=== PATIENT | female | born 1985 | race Caucasian/White ===

== ENCOUNTER 2016-12-15 03:34 | Inpatient (IN) | payer OTHER ==
[2016-12-15 04:46] LABS: Hematocrit 32 % (35-47); Hemoglobin 10.5 g/dl (12.0-16.0); Mean Corpuscular HGB Conc 33 g/dl (31-36); Mean Corpuscular Hemoglobin 29 pg (27-31); Mean Corpuscular Volume 90 fL (80-97); Mean Platelet Volume 11 um3 (7.4-10.4); Red Blood Count 3.58 10^6/ul (4.0-5.4); Red Cell Distribution Width 14 % (10.5-15); White Blood Count 14.8 10^3/ul (3.5-10.8)
[2016-12-15] MEDS ORDERED: OBEPIDURAL* 250 ML ONE (05:26)
[2016-12-15] MEDS ORDERED: EPHEDrine (Pressors)* 50 MG/ML VIAL IV PUSH PRN ×2 (06:18)
[2016-12-15] MEDS ORDERED: Phenylephrine IV* 40 MCG/ML 10 ML SYRINGE IV PUSH PRN ×2 (06:18)
[2016-12-15] MEDS ORDERED: Sodium Citrate/Citric Acid* 15 ML UDC PO PRN (06:18)
[2016-12-15] MEDS ORDERED: Famotidine TAB* 20 MG PO PRN (06:18)
[2016-12-15] MEDS ORDERED: OBEPIDURAL* 250 ML EPIDURAL SCH (07:00)
[2016-12-15] MEDS ORDERED: Oxytocin in LR* 20 UNITS/1,000 ML BAG IVPB ONE (09:28)
[2016-12-15] MEDS ORDERED: Dibucaine 1% 28.35 GM TUBE PR PRN (12:51)
[2016-12-15] MEDS ORDERED: Acetaminophen TAB* 325 MG PO PRN (12:51)
[2016-12-15] MEDS ORDERED: oxyCODONE/Acetamin 5/325 MG* TAB PO PRN (12:51)
[2016-12-15] MEDS ORDERED: Glycerin ADULT SUPP PR PRN (12:51)
[2016-12-15] MEDS ORDERED: Witch Hazel PAD* JAR TOPICAL PRN (12:51)
[2016-12-15] MEDS ORDERED: Oxytocin in LR* 20 UNITS/1,000 ML BAG IVPB SCH (13:00)
[2016-12-15] MEDS ORDERED: Simethicone CHEW TAB* 80 MG PO SCH (17:30)
[2016-12-15] MEDS: Docusate CAP* 100 MG PO SCH ×2 (21:21→23:28)
[2016-12-15] MEDS: Ibuprofen TAB* 600 MG PO PRN (22:53)
[2016-12-16 06:58] LABS: Hematocrit 26 % (35-47); Hemoglobin 8.5 g/dl (12.0-16.0); Mean Corpuscular HGB Conc 33 g/dl (31-36); Mean Corpuscular Hemoglobin 30 pg (27-31); Mean Corpuscular Volume 91 fL (80-97); Mean Platelet Volume 11 um3 (7.4-10.4); Red Blood Count 2.86 10^6/ul (4.0-5.4); Red Cell Distribution Width 14 % (10.5-15); White Blood Count 9.7 10^3/ul (3.5-10.8)
[2016-12-16] MEDS: Docusate CAP* 100 MG PO SCH ×3 (08:15→20:17)
[2016-12-16] MEDS: Ferrous Gluconate TAB* 324 MG TAB PO SCH ×2 (08:16→20:17)
[2016-12-16] MEDS: Ibuprofen TAB* 600 MG PO PRN ×3 (08:16→20:17)
[2016-12-17] MEDS: Docusate CAP* 100 MG PO SCH (07:53)
[2016-12-17] MEDS: Ferrous Gluconate TAB* 324 MG TAB PO SCH (07:53)
[2016-12-17] MEDS: Ibuprofen TAB* 600 MG PO PRN (07:53)
[2016-12-17 08:33] VITALS: BP 110/67
== END 2016-12-17 12:14 | disposition home or self-care (01) | DRG 560 ==
LOC: MCHOBOUT 03:34 → MCHOB 05:26
PROVIDERS: ADMIT Obstetrics & Gynecology; ATTEND Obstetrics & Gynecology
PROC: 10E0XZZ Delivery of Products of Conception, External Approach (ICD-10-PCS; principal; 2016-12-15)
PROC: 10907ZC Drainage of Amniotic Fluid, Therapeutic from Products of Conception, Via Natural or Artificial Opening (ICD-10-PCS; 2016-12-15)
PROC: 4A1HXCZ Monitoring of Products of Conception, Cardiac Rate, External Approach (ICD-10-PCS; 2016-12-15)
PROC: 0KQM0ZZ Repair Perineum Muscle, Open Approach (ICD-10-PCS; 2016-12-15)
DX: O34.211 Maternal care for low transverse scar from previous cesarean delivery (principal); O48.0 Post-term pregnancy; Z3A.40 40 weeks gestation of pregnancy; Z37.0 Single live birth; O70.1 Second degree perineal laceration during delivery; O90.81 Anemia of the puerperium
CPT/HCPCS: 36415; 85025; 86850; 86900; 86901; A9270-GY

== ENCOUNTER 2021-10-07 16:10 | Inpatient (IN) ==
[2021-10-07] MEDS ORDERED: Lactated Ringers 1000 ml BAG 1,000 ML IV ONE ×2 (19:02→22:16)
[2021-10-07] MEDS ORDERED: Buffered Lidocaine 1% SYRIN 1 ml INTRADERM ONE (19:02)
[2021-10-07 19:35] LABS: ABS Eosinophils 0.1 10^3/ul (0-0.6); ABS Lymphocytes 1.7 10^3/ul (1.0-4.8); ABS Monocytes 1.1 10^3/ul (0-0.8); ABS Neutrophils 7.3 10^3/ul (1.5-7.7); Eosinophil % 0.5 %; Hematocrit 29 % (35-47); Hemoglobin 9.6 g/dL (12.0-16.0); Lymphocyte % 16.9 %; Mean Corpuscular HGB Conc 33 g/dL (31-36); Mean Corpuscular Hemoglobin 28 pg (27-31); Mean Corpuscular Volume 86 fL (80-97); Mean Platelet Volume 10.7 fL (7.4-10.4); Platelet Count 229 10^3/uL (150-450); Red Blood Count 3.38 10^6 /uL (3.70-4.87); Red Cell Distribution Width 14 % (10-15); White Blood Count 10.2 10^3/uL (3.5-10.8)
[2021-10-07] MEDS ORDERED: Lactated Ringers 1000 ml BAG 1,000 ML IV SCH ×3 (20:00→23:45)
[2021-10-07 21:07] LABS: Urine Benzodiazepine Screen None Detected (None Detect); Urine Cannabinoids Screen None Detected (None Detect); Urine Opiates Screen None Detected (None Detect)
[2021-10-07] MEDS ORDERED: OBEPIDURAL (200 ML) 200 ML EPIDURAL ONE (21:36)
[2021-10-07] MEDS ORDERED: Phenylephrine 40 mcg/mL 10mL (400mcg) SYRINGE IV PUSH PRN ×2 (22:16)
[2021-10-07] MEDS ORDERED: Sodium Citrate/Citric Acid LIQ 15 ML UDC PO PRN (22:16)
[2021-10-07] MEDS ORDERED: Lactated Ringers 1000 ml BAG 500 ML IV PRN (22:16)
[2021-10-07] MEDS ORDERED: Oxytocin in LR 20 UNITS/1,000 ML BAG IVPB ONE (22:51)
[2021-10-07] MEDS ORDERED: OBEPIDURAL (200 ML) 200 ML EPIDURAL SCH (23:00)
[2021-10-07] MEDS ORDERED: Glycerin ADULT 2.4 gm SUPP PR PRN (23:13)
[2021-10-07] MEDS ORDERED: Witch Hazel PAD JAR TOPICAL PRN (23:13)
[2021-10-07] MEDS ORDERED: Dibucaine 1% OINT 28.35 GM TUBE PR PRN (23:13)
[2021-10-07] MEDS ORDERED: Oxytocin in LR 20 UNITS/1,000 ML BAG IVPB SCH (23:45)
[2021-10-08 06:15] LABS: ABS Lymphocytes 1.3 10^3/ul (1.0-4.8); ABS Monocytes 1.1 10^3/ul (0-0.8); ABS Neutrophils 11.2 10^3/ul (1.5-7.7); Eosinophil % 0.3 %; Hematocrit 26 % (35-47); Hemoglobin 8.5 g/dL (12.0-16.0); Lymphocyte % 9.7 %; Mean Corpuscular HGB Conc 32 g/dL (31-36); Mean Corpuscular Hemoglobin 27 pg (27-31); Mean Corpuscular Volume 85 fL (80-97); Mean Platelet Volume 9.7 fL (7.4-10.4); Platelet Count 208 10^3/uL (150-450); Red Blood Count 3.09 10^6 /uL (3.70-4.87); Red Cell Distribution Width 14 % (10-15); White Blood Count 13.7 10^3/uL (3.5-10.8)
[2021-10-08] MEDS: CEPHALEXIN 500 MG PO SCH ×2 (09:09→21:14)
[2021-10-09] MEDS: CEPHALEXIN 500 MG PO SCH (08:42)
[2021-10-09 09:01] VITALS: BP 113/72
== END 2021-10-09 13:35 | disposition home or self-care (01) | DRG 560 ==
LOC: MCHOBOUT 16:10 → MCHOB 18:38
PROVIDERS: ADMIT Obstetrics & Gynecology; ATTEND Obstetrics & Gynecology

== ENCOUNTER 2024-06-24 09:02 | Inpatient (IN) ==
[2024-06-24] MEDS ORDERED: Prochlorperazine 5 mg/ml 2 ml VIAL (10 mg) IV PRN (10:34)
[2024-06-24] MEDS ORDERED: Lidocaine 1% VIAL 10 MG/ML 30 ML VIAL INJ PRN (10:34)
[2024-06-24] MEDS ORDERED: Nalbuphine 10 MG/ML 1 ML VIAL IV PRN (10:34)
[2024-06-24] MEDS ORDERED: Buffered Lidocaine 1% SYRIN 1 ml INTRADERM ONE (10:34)
[2024-06-24 11:06] LABS: ABS Lymphocytes 1.3 10^3/uL (1.0-4.8); ABS Monocytes 0.9 10^3/uL (0.0-0.9); ABS Neutrophils 8.4 10^3/uL (1.5-7.6); Eosinophil % 0.4 %; Hematocrit 35.9 % (35-45); Hemoglobin 11.9 g/dL (11.5-14.3); Lymphocyte % 12.2 %; Mean Corpuscular Hemoglobin 29.6 pg (27-33); Mean Corpuscular Hgb Conc 33.2 g/dL (31-36); Mean Corpuscular Volume 89.1 fL (80-97); Mean Platelet Volume 8.7 fL (7.5-11.2); Platelet Count 295 10^3/uL (150-450); Red Blood Count 4.03 10^6/uL (3.63-4.92); Red Cell Distribution Width 20.8 % (12-17); White Blood Count 10.7 10^3/uL (3.8-11.8)
[2024-06-24] MEDS: Lactated Ringers 1000 ml BAG 1,000 ML IV ONE (11:13)
[2024-06-24] MEDS ORDERED: Lidocaine 1.5% EPI 1:200,000 30 ML SDV ONE (11:15)
[2024-06-24 11:23] LABS: Urine Benzodiazepine Screen None Detected (None Detect); Urine Cannabinoids Screen None Detected (None Detect); Urine Opiates Screen None Detected (None Detect)
[2024-06-24] MEDS: OBEPIDURAL (200 ML) 200 ML EPIDURAL ONE (11:42)
[2024-06-24] MEDS: Lactated Ringers 1000 ml BAG 1,000 ML IV SCH (11:44)
[2024-06-24] MEDS ORDERED: Sodium Citrate/Citric Acid LIQ 15 ML UDC PO PRN (11:48)
[2024-06-24] MEDS ORDERED: Phenylephrine 40 mcg/mL 10mL (400mcg) SYRINGE IV PUSH PRN ×2 (11:48)
[2024-06-24] MEDS ORDERED: Lactated Ringers 1000 ml BAG 1,000 ML IV ONE (11:48)
[2024-06-24] MEDS ORDERED: OBEPIDURAL (200 ML) 200 ML EPIDURAL SCH (12:00)
[2024-06-24] MEDS ORDERED: Lactated Ringers 1000 ml BAG 1,000 ML IV SCH ×2 (12:00→14:00)
[2024-06-24 12:42] LABS: Urine Appearance Clear; Urine Bilirubin Negative (Negative); Urine Blood Negative (Negative); Urine Color Yellow; Urine Glucose Negative (Negative); Urine Ketones Trace (Negative); Urine Nitrite Negative (Negative); Urine Protein Trace (Negative); Urine Specific Gravity 1.024 (1.002-1.030); Urine Urobilinogen 1+ (Negative); Urine pH 6.5 (5.0-8.0)
[2024-06-24] MEDS ORDERED: Oxytocin in LR 20,000 MILLI.UNIT/1,000 ML BAG IV ONE (13:24)
[2024-06-24] MEDS: Oxytocin in LR 20,000 MILLI.UNIT/1,000 ML BAG IV SCH (13:40)
[2024-06-24] MEDS ORDERED: Glycerin ADULT 2.4 gm SUPP PR PRN (13:42)
[2024-06-24] MEDS: Witch Hazel PAD JAR TOPICAL PRN (16:03)
[2024-06-24] MEDS: Dibucaine 1% OINT 28.35 GM TUBE PR PRN (16:03)
[2024-06-25 06:58] LABS: ABS Basophils 0.1 10^3/uL (0.0-0.1); ABS Eosinophils 0.1 10^3/uL (0.0-0.5); ABS Lymphocytes 1.7 10^3/uL (1.0-4.8); ABS Neutrophils 8.6 10^3/uL (1.5-7.6); Eosinophil % 0.7 %; Hematocrit 32.7 % (35-45); Lymphocyte % 14.8 %; Mean Corpuscular Hemoglobin 30.2 pg (27-33); Mean Corpuscular Hgb Conc 33.8 g/dL (31-36); Mean Corpuscular Volume 89.3 fL (80-97); Mean Platelet Volume 8.4 fL (7.5-11.2); Platelet Count 240 10^3/uL (150-450); Red Blood Count 3.66 10^6/uL (3.63-4.92); Red Cell Distribution Width 20.9 % (12-17); White Blood Count 11.4 10^3/uL (3.8-11.8)
[2024-06-25 07:54] VITALS: BP 122/74
== END 2024-06-25 15:00 | disposition home or self-care (01) | DRG 560 ==
LOC: MCHOBOUT 09:02 → MCHOB 10:28
PROVIDERS: ADMIT Obstetrics & Gynecology; ATTEND Obstetrics & Gynecology